=== PATIENT | female | born 1990 | race American Indian/Alaskan Native ===

== ENCOUNTER 2019-06-10 15:11 | Inpatient (IN) | payer MEDICAID ==
[2019-06-10] MEDS ORDERED: ePHEDrine SULFATE 50 MG/1 ML INJ IV PRN (15:42)
[2019-06-10] MEDS ORDERED: TERBUTALINE 1 MG/1 ML INJ SUB-Q PRN (15:42)
[2019-06-10] MEDS ORDERED: AMPICILLIN/NS 2 GM/100 ML 2 GM/100 ML BAG IV ONE (15:42)
[2019-06-10] MEDS ORDERED: ONDANSETRON 4 MG/2 ML INJ IV PRN (15:42)
[2019-06-10] MEDS ORDERED: LIDOCAINE (2%) 20 MG/1 ML VIAL 20 ML MDV INFILTRATI ONE (15:42)
[2019-06-10] MEDS ORDERED: MINERAL OIL 30 ML ORAL LIQD PO PRN (15:42)
[2019-06-10] MEDS ORDERED: fentaNYL 100 MCG/2 ML INJ ONE (15:57)
[2019-06-10] MEDS ORDERED: LACTATED RINGERS 1,000 ML IV SCH (16:00)
--- NOTE | 2019-06-10 16:04 | History and Physical Report ---
History of Present Illness Date of examination: 06/10/19 Chief complaint: pt arrived EMS in labor w/ records from clinic in [place]. History of present illness: denies medical or surgical hx. EDC 06/17/19 OB hx: 2010 @ 39 weeks, 6#12oz EAB x 2 Pt brought copy of medical records for review, scanned into chart. 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: other Family/Genetic History: none - Obstetrical History Expected Date of Delivery: 06/17/19 Actual Gestation: 39 Week(s) 0 Day(s) : 4 Para: 1 Hx # Term Pregnancies: 1 Number of Pregnancies: 0 Spontaneous Abortions: 0 Induced : 2 Number of Living Children: 1 Medications and Allergies Active Meds: Active Medications Ephedrine Sulfate (Ephedrine Sulfate) 10 mg IV Q2M PRN PRN Reason: Hypotension Oxytocin/Sodium Chloride (Pitocin/Ns 20 Unit/1000ml Drip) 20 units in 1,000 mls @ 125 mls/hr IV DIRECT MARISELA Lactated Ringer's (Lactated Ringers) 1,000 mls @ 125 mls/hr IV DIRECT MARISELA Ampicillin Sodium (Ampicillin/Ns 2 Gm/100 Ml) 2 gm in 100 mls @ 100 mls/hr IV ONCE ONE; Protocol Stop: 06/10/19 16:41 Ampicillin Sodium (Ampicillin/Ns 1 Gm/50 Ml) 1 gm in 50 mls @ 100 mls/hr IV Q4HR MARISELA; Protocol Lidocaine (Xylocaine 2%) 20 ml INFILTRATI ONCE ONE Stop: 06/10/19 15:43 Mineral Oil (Mineral Oil) 30 ml PO QHS PRN PRN Reason: Constipation Ondansetron HCl (Zofran) 4 mg IV Q8H PRN PRN Reason: Nausea And Vomiting Terbutaline Sulfate (Brethine) 0.25 mg SUB-Q ONCE PRN PRN Reason: Hyperstimulation/Hypertonicity Review of Systems All systems: negative - Vital Signs Vital signs: Vital Signs Pulse BP 93 H 113/69 06/10/19 15:31 06/10/19 15:31 Temp Pulse Resp BP Pulse Ox 98 F 93 H 16 113/69 06/10/19 15:33 06/10/19 15:33 06/10/19 15:33 06/10/19 15:33 - Physical Exam Breasts: Positive: normal Cardiovascular: Regular rate Lungs: Positive: Clear to auscultation, Normal air movement Abdomen: Positive: normal appearance, soft Genitourinary (Female): Positive: normal external genitalia, normal perenium Vulva: both: normal Vagina: Positive: normal moisture Uterus: Positive: normal size, normal contour Anus/Rectum: Positive: normal perianal skin Extremities: Positive: normal - Obstetrical FHR: category 2 Cervical Dilatation: 8 (BBOW) Cervical Effacement Percentage: 90 station: 0 Uterine Contraction Frequency (min): 2-3 Uterine Contraction Duration: 60 Uterine Contraction Pattern: Regular Uterine Tone Measurement Phase: Contraction Uterine Contraction Intensity: Strong/Firm Results All other labs normal. Assessment and Plan 28y/o @ 39+0 weeks in active labor, admission orders in EMR. Anticipate . - Patient Problems (1) 39 weeks gestation of Current Visit: Yes Status: Acute (2) Positive GBS test Current Visit: Yes Status: Acute Plan to address problem: ampicillin q4h until delivery
[2019-06-10] MEDS ORDERED: fentaNYL 100 MCG/2 ML INJ IV ONE (16:19)
[2019-06-10 16:35] LABS: Amphetamine Screen,Urine PRESUMPTIVE NEGATIVE; Benzodiazepines Screen,Urine PRESUMPTIVE NEGATIVE; Cannabinoid Screen,Urine PRESUMPTIVE NEGATIVE; Cocaine Screen,Urine PRESUMPTIVE NEGATIVE; Methadone Screen,Urine PRESUMPTIVE NEGATIVE; Opiate Screen,Urine PRESUMPTIVE NEGATIVE
[2019-06-10] MEDS: OXYTOCIN 20 UNIT/1000ML DRIP 20 UNITS/1,000 ML BAG IV SCH ×2 (16:35→17:57)
--- NOTE | 2019-06-10 16:43 | Procedure Note ---
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 Infant placed skin to skin on mother's abdomen. 3 vessel cord clamped and cut after cessation of pulsation. Placenta del intact and complete. no lacerations to repair. EBL 300. Apgars 8/9, wt 6#0oz. mother and remain LDR stable. - A at 1 minute: 8 at 5 minutes: 9 Gender: Female (6#0oz, "Nova")
[2019-06-10 16:47] LABS: Hematocrit 37.7 % (30.3-42.9); Hemoglobin 12.5 gm/dl (10.1-14.3); Mean Corpuscular HGB Conc 33 % (30-34); Mean Corpuscular Volume 96 fl (79-97); Platelet Count 137 K/mm3 (140-440); Red Blood Count 3.91 M/mm3 (3.65-5.03); Red Cell Distribution Width 13.1 % (13.2-15.2)
[2019-06-10] MEDS ORDERED: PROMETHAZINE 25 MG TAB PO PRN (18:50)
[2019-06-10] MEDS ORDERED: MAGNESIUM HYDROXIDE (MOM) ORAL LIQD UDC PO PRN (18:50)
[2019-06-10] MEDS ORDERED: IBUPROFEN 600 MG TAB PO SCH (18:50)
[2019-06-10] MEDS ORDERED: LANOLIN/ZINC/DIMETHICONE (LANSINOH) 7 GM TP PRN (18:50)
[2019-06-10] MEDS ORDERED: BENZOCAINE/MENTHOL 20/0.5% TOP SPRAY 56 GM TP PRN (18:50)
[2019-06-10] MEDS ORDERED: diphenhydrAMINE 25 MG CAP PO PRN (18:50)
[2019-06-10] MEDS ORDERED: OXYTOCIN 20 UNIT/1000ML DRIP 20 UNITS/1,000 ML BAG IV SCH (18:50)
[2019-06-10] MEDS ORDERED: WITCH HAZEL/ GLYCERIN PAD TP PRN (18:50)
[2019-06-10] MEDS ORDERED: AMPICILLIN/NS 1 GM/50 ML 1 GM/50 ML BAG IV SCH (19:44)
[2019-06-10] MEDS: ACETAMINOPHEN 325 MG TAB PO PRN (23:24)
[2019-06-11 05:23] LABS: Hematocrit 30.4 % (30.3-42.9); Hemoglobin 10.3 gm/dl (10.1-14.3)
[2019-06-11] MEDS: ACETAMINOPHEN 325 MG TAB PO PRN ×2 (06:29→19:48)
--- NOTE | 2019-06-11 07:25 | Discharge Summary ---
Providers - Providers Date of Admission: 06/10/19 15:12 Date of discharge: 06/11/19 (Pt agrees with discharge ) Attending physician: JUNIE CHARLTON Primary care physician: JUNIE CHARLTON Hospitalization Reason for admission: active labor (Pt was seeing Dr. Del Cid at another facility) Delivery: Episiotomy: none Laceration: none Incision: normal Other procedures: none complications: none Discharge diagnosis: IUP at term delivered [place] baby: female Hospital course: Uncomplicated vaginal delivery UDS negative Pt resting quietly, vital signs stable, fundus firm below umblicus, perineum intact, H&H 05/14, drop related to blood loss for delivery, no S&Sx of anemia, doing well status post vaginal delivery. P:discharge today with instructions, pt states will follow up with OB of record, will provide [facility] information. Condition at discharge: Good Disposition: DC- TO HOME OR SELFCARE - Discharge Diagnoses (1) (normal spontaneous vaginal delivery) Status: Acute Comment: Follow up in 4-6 weeks for care Plan - Discharge Medications Prescriptions: Ibuprofen [Motrin 800 MG tab] 800 mg PO Q8HR PRN #30 tablet PRN Reason: Pain - Provider Discharge Summary Activity: routine, no sex for 6 weeks, no heavy lifting 4 weeks, no strenuous exercise Diet: routine Instructions: routine Additional instructions: [] Smoking cessation referral if applicable(refer to patient education folder for contact #) [] Refer to [facility]'s [facility] Booklet Call your doctor immediately for: * Fever > 100.5 * Heavy vaginal bleeding ( >1 pad per hour) * Severe persistent headache * Shortness of breath * Reddened, hot, painful area to leg or breast * Drainage or odor from incision. * Keep incision clean and dry at all times and follow doctor's instructions regarding bathing/showering - Follow up plan Follow up: JUNIE CHARLTON MD [Primary Care Provider] - 6 Weeks (Congradulations! Please call your OB provider to schedule a visit in 6 weeks. Take Motrin for cramping or pain. Call with concerns. [facility], [address], [address], [address] )
[2019-06-11] MEDS ORDERED: PRENATAL VIT27-FE FUMARATE-FOLIC ACID VIT TAB PO SCH (10:00)
[2019-06-11] MEDS ORDERED: TETANUS,DIPH,PERTUSS(ACELL) VACCINE 0.5 ML SYRINGE IM ONE (16:39)
[2019-06-12] MEDS: ACETAMINOPHEN 325 MG TAB PO PRN ×2 (03:07→10:12)
[2019-06-12 16:22] VITALS: BP 111/64
== END 2019-06-12 16:05 | disposition home or self-care (01) | DRG 775 ==
LOC: TRG 15:11 → LD 15:11 → TRG 15:13 → OB 18:40
PROVIDERS: ADMIT Obstetrics & Gynecology; ATTEND Obstetrics & Gynecology
PROC: 10E0XZZ Delivery of Products of Conception, External Approach (ICD-10-PCS; principal; 2019-06-10)
PROC: 3E0234Z Introduction of Serum, Toxoid and Vaccine into Muscle, Percutaneous Approach (ICD-10-PCS; 2019-06-11)
DX: O99.824 Streptococcus B carrier state complicating childbirth (principal); Z3A.39 39 weeks gestation of pregnancy; Z37.0 Single live birth; Z23 Encounter for immunization; Z88.8 Allergy status to other drugs, medicaments and biological substances
CPT/HCPCS: 36415; 80307; 85014; 85018; 85027; 86762; 86850; 86900; 86901; G0378; A6250; J0290; J2590; J3010; J7120